=== PATIENT | male | born 1975 | race Caucasian/White ===

== ENCOUNTER 2021-03-19 10:06 | Emergency (ER) | payer OTHER ==
[2021-03-19 14:29] LABS: HEMOGLOBIN 14.2 gm/dl (14.0-17.5); RED BLOOD COUNT 4.28 M/UL (4.20-5.50); WHITE BLOOD COUNT 7.4 K/UL (4.5-11.0)
[2021-03-19 14:50] LABS: BUN/CREATININE RATIO 24 (0-10)
== END 2021-03-19 21:00 | disposition short-term general hospital (02) ==
LOC: ER1 10:06
PROVIDERS: Physician Assistant
DX: R45.851 Suicidal ideations (principal); F17.210 Nicotine dependence, cigarettes, uncomplicated; Z20.822 Contact with and (suspected) exposure to COVID-19
CPT/HCPCS: 80053; 80307; 81001; 83735; 85025; 99285; G0480; U0002